=== PATIENT | female | born 1970 | race Caucasian/White ===

== ENCOUNTER 2019-03-15 20:42 | Emergency (ER) | payer BC, OTHER ==
[2019-03-15] MEDS ORDERED: Acetaminophen/HYDROcodone 325-10 MG Tab PO ONE ×2 (20:43→20:47)
--- NOTE | 2019-03-15 20:50 | EDM.PDOC ---
ED HPI GENERAL MEDICAL PROBLEM - General Chief Complaint: Upper Extremity Injury/Pain Stated Complaint: FELL OUT OF BOAT,BROKE ARM? Time Seen by Provider: 03/15/19 20:47 Source of Information: Reports: Patient History Limitations: Reports: No Limitations - History of Present Illness INITIAL COMMENTS - FREE TEXT/NARRATIVE: fell off boat while grabbing onto a handle and injured right wrist and 5th looks broke. Right Arm Pain Score (Numeric/FACES): 8 - Related Data Allergies Allergy/AdvReac Type Severity Reaction Status Date / Time gentamicin Allergy Redness Verified 03/15/19 20:56 Home Meds: Home Meds Escitalopram [Lexapro] 10 mg PO DAILY 03/15/19 [History] Review of Systems - Review of Systems Review Of Systems: ROS reveals no pertinent complaints other than HPI. ED EXAM, GENERAL - Physical Exam Exam: See Below Exam Limited By: No Limitations General Appearance: Alert, WD/WN, Mild Distress, Other (pain) Ears: Hearing Grossly Normal Throat/Mouth: Normal Voice, No Airway Compromise Head: Atraumatic Neck: Non-Tender, Full Range of Motion Respiratory/Chest: No Respiratory Distress Cardiovascular: Regular Rate, Rhythm GI/Abdominal: Soft, Non-Tender Extremities: Other (right 5th finger deformed NV nwl, wrist contused tender R/P , NV wnl) Neurological: Alert, Oriented, Normal Cognition, Normal Gait, No Motor/Sensory Deficits Psychiatric: Tearful Skin Exam: Warm, Dry, Normal Color Lymphatic: No Adenopathy ED TRAUMA EXTREMITY PROCEDURES - Joint Reduction Site: Finger (R) Pre-Procedure NV Status: Normal Post-Procedure NV Status: Normal Technique: Traction/Counter Traction Number of Attempts: 1 Post-Reduction Imaging: Completely Reduced Joint Reduction Complications: No Course - Vital Signs Last Recorded V/S: Last Vital Signs Temp 36.9 C 03/15/19 20:46 Pulse 75 03/15/19 20:46 Resp 16 03/15/19 20:46 BP 123/83 03/15/19 20:46 Pulse Ox 100 03/15/19 20:46 - Orders/Labs/Meds Orders: Active Orders 24 hr Category Date Time Status Fingers Fifth Digit Rt F9 [CR] Urgent Exams 03/15/19 21:29 Taken Meds: Medications Discontinued Medications Generic Name Dose Route Start Last Admin Trade Name Freq PRN Reason Stop Dose Admin Hydrocodone Bitart/Acetaminophen 1 tab 03/15/19 20:47 03/15/19 21:01 [place] 325-10 Mg PO 03/15/19 20:48 1 tab ONETIME ONE Administration Hydrocodone Bitart/Acetaminophen Confirm 03/15/19 21:41 [place] 325-10 Mg Administered 03/15/19 21:42 Dose 1 tab .ROUTE .STK-MED ONE Hydrocodone Bitart/Acetaminophen Confirm 03/15/19 21:41 [place] 325-10 Mg Administered 03/15/19 21:42 Dose 1 tab .ROUTE .STK-MED ONE - Re-Assessments/Exams Free Text/Narrative Re-Assessment/Exam: 03/15/19 22:06 re-exam; post reduction discussed who is feeling good presently. Departure - Departure Time of Disposition: 22:06 Disposition: Home, Self-Care 01 Condition: Good Clinical Impression: Dislocation, finger closed Qualifiers: Encounter type: initial encounter Qualified Code(s): S63.259A - Unspecified dislocation of unspecified finger, initial encounter - Discharge Information Instructions: Finger or Thumb Dislocation, [id number] Forms: ED Department Discharge Additional Instructions: 1) ice intermittently for swelling 2) avoid use for next 24 hours 3) follow up at clinic or recheck if there is any change or concern rx togo; norco10 x 2 - My Orders Last 24 Hours: My Active Orders 03/15/19 21:29 Fingers Fifth Digit Rt F9 [CR] Urgent - Assessment/Plan Last 24 Hours: My Active Orders 03/15/19 21:29 Fingers Fifth Digit Rt F9 [CR] Urgent
[2019-03-15] MEDS ORDERED: Acetaminophen/HYDROcodone 325-10 MG Tab ONE ×2 (21:41)
== END 2019-03-15 22:12 | disposition home or self-care (01) ==
LOC: DL.ED 20:42
DX: S63.266A Dislocation of metacarpophalangeal joint of right little finger, initial encounter (principal); Z88.1 Allergy status to other antibiotic agents; Z79.899 Other long term (current) drug therapy; V92.09XA Drowning and submersion due to fall off unspecified watercraft, initial encounter
CPT/HCPCS: 26700; 26770; 73130-RT; 73140-F9; 99283-25; A9270-GY